=== PATIENT | male | born 1970 | race Caucasian/White ===

== ENCOUNTER 2019-11-18 08:14 | Emergency (ER) | payer MEDICAID ==
[~2019-11-18] VITALS: Ht 175.3 cm; Wt 77.3 kg
[2019-11-18] MEDS ORDERED: LORazepam 2 mg/ml vial IM ONE (09:45)
[2019-11-18 10:06] VITALS: BP 130/78
== END 2019-11-18 10:11 | disposition home or self-care (01) ==
LOC: ER 08:17
DX: F41.9 Anxiety disorder, unspecified (principal); E11.65 Type 2 diabetes mellitus with hyperglycemia; G47.00 Insomnia, unspecified; I10 Essential (primary) hypertension
CPT/HCPCS: 82948; 96372; 99283; J2060

== ENCOUNTER 2019-12-12 10:44 | Emergency (ER) | payer MEDICAID ==
[~2019-12-12] VITALS: Ht 175.3 cm; Wt 84.1 kg
[2019-12-12 10:50] VITALS: BP 126/90
[2019-12-12] MEDS ORDERED: CLON-527 PO (11:35)
== END 2019-12-12 11:50 | disposition home or self-care (01) ==
LOC: ER 10:45
DX: F41.9 Anxiety disorder, unspecified (principal); Z76.0 Encounter for issue of repeat prescription; E11.9 Type 2 diabetes mellitus without complications; I10 Essential (primary) hypertension; Z79.899 Other long term (current) drug therapy
CPT/HCPCS: 99281

== ENCOUNTER 2020-01-03 00:48 | Emergency (ER) | payer MEDICAID ==
[~2020-01-03] VITALS: Ht 175.3 cm; Wt 77.3 kg
[~2020-01-03 00:48] MED LIST: CLON-527 PO
[2020-01-03] MEDS ORDERED: LORazepam 1 MG tablet PO ONE (01:30)
[2020-01-03 01:50] LABS: BASOPHILS # (AUTO) 0.1 X10'3 (0-0.2); BASOPHILS % (AUTO) 0.9 % (0-1); EOSINOPHILS # (AUTO) 0.3 X10'3 (0-0.9); EOSINOPHILS % (AUTO) 2.8 % (0-6); HEMATOCRIT 44.6 % (42.0-52.0); HEMOGLOBIN 15.5 g/dl (14.0-17.9); LYMPHOCYTES # (AUTO) 2.5 X10'3 (1.1-4.8); LYMPHOCYTES % (AUTO) 26.5 % (21-51); MEAN CORPUSCULAR HEMOGLOBIN 32.3 PG (27.0-31.0); MEAN CORPUSCULAR HGB CONC 34.8 g/dL (33.0-36.5); MEAN CORPUSCULAR VOLUME 92.9 FL (78-98); MEAN PLATELET VOLUME 7.4 FL (7.4-10.4); MONOCYTES # (AUTO) 0.6 X10'3 (0-0.9); MONOCYTES % (AUTO) 6.4 % (2-12); NEUTROPHILS # (AUTO) 5.9 X10'3 (1.8-7.7); NEUTROPHILS % (AUTO) 63.4 % (42-75); PLATELET COUNT 335 X10'3 (140-440); WHITE BLOOD COUNT 9.3 X10'3 (4.5-11.0)
[2020-01-03 01:57] LABS: ALANINE AMINOTRANSFERASE 25 U/L (12-78); ALBUMIN 3.7 G/DL (3.4-5.0); ALBUMIN/GLOBULIN RATIO 1.3 (1.1-1.5); ALKALINE PHOSPHATASE 64 IU/L (46-116); ANION GAP 7 (8-16); ASPARTATE AMINO TRANSFERASE 15 U/L (10-37); BILIRUBIN,TOTAL 0.3 MG/DL (0.1-1.0); BLOOD UREA NITROGEN 10 MG/DL (7-18); BUN/CREATININE RATIO 8.6 (5.4-32.0); CHLORIDE 103 MMOL/L (99-107); CREATININE 1.16 MG/DL (0.60-1.10); GLUCOSE 107 MG/DL (70-104); SODIUM 141 MMOL/L (135-145); TOTAL CARBON DIOXIDE 31.5 MMOL/L (24-32); TOTAL PROTEIN 6.5 G/DL (6.4-8.2); eGFR 67 ML/MIN
[2020-01-03 01:58] LABS: ETHANOL < 0.010 GM/DL (0.0-0.010)
[2020-01-03 02:22] LABS: URINE AMPHETAMINE SCREEN NEGATIVE (Neg); URINE BARBITUATE SCREEN NEGATIVE (Neg); URINE BENZODIAZEPINES SCREEN NEGATIVE (Neg); URINE CANNABINOID SCREEN NEGATIVE (Neg); URINE COCAINE SCREEN NEGATIVE (Neg); URINE METHADONE SCREEN NEGATIVE (Neg); URINE OPIATE SCREEN NEGATIVE (Neg); URINE PHENCYCLIDINE SCREEN NEGATIVE (Neg)
--- NOTE | 2020-01-03 02:22 | NUR ---
Patient arrived to unit. He asked for water and crackers while lying on gurney.
--- NOTE | 2020-01-03 02:25 | NUR ---
provided crackers and water
[2020-01-03 05:45] VITALS: BP 105/63
--- NOTE | 2020-01-03 06:58 | NUR ---
pt is awake. resting in his room
[2020-01-03] MEDS ORDERED: nicotine 7mg patch - 24hr TD ONE (08:08)
[2020-01-04] MEDS ORDERED: nicotine 7mg patch - 24hr TD SCH (08:00)
== END 2020-01-03 10:01 | disposition home or self-care (01) ==
LOC: ER 00:49
DX: F41.9 Anxiety disorder, unspecified (principal); F32.9 Major depressive disorder, single episode, unspecified; I10 Essential (primary) hypertension; E11.9 Type 2 diabetes mellitus without complications; F17.200 Nicotine dependence, unspecified, uncomplicated; F12.90 Cannabis use, unspecified, uncomplicated; Z79.899 Other long term (current) drug therapy
CPT/HCPCS: 36415; 80053; 80305; 80320; 85025; 99285

== ENCOUNTER 2020-01-09 03:22 | Emergency (ER) | payer MEDICAID ==
[~2020-01-09] VITALS: Ht 175.3 cm; Wt 79.0 kg
[2020-01-09 03:26] VITALS: BP 115/77
== END 2020-01-09 04:20 | disposition home or self-care (01) ==
LOC: ER 03:22
DX: F41.9 Anxiety disorder, unspecified (principal); R10.84 Generalized abdominal pain; G89.29 Other chronic pain; I10 Essential (primary) hypertension; E11.9 Type 2 diabetes mellitus without complications; F12.90 Cannabis use, unspecified, uncomplicated; Z79.899 Other long term (current) drug therapy
CPT/HCPCS: 99281; 99283

== ENCOUNTER 2020-01-14 16:24 | Emergency (ER) | payer MEDICAID ==
[~2020-01-14] VITALS: Ht 175.3 cm; Wt 75.2 kg
--- NOTE | 2020-01-14 16:42 | NUR ---
[facility] BUT SAYS HE DOES NOT FEEL SAFE THERE HE FEELS LIKE PEOPLE ARE MESSING WITH HIM TRING TO MAKE HIM FEEL LIKE HE IS LOSING HIS MIND. SAYS HE HAS BEEN SEEING UFO'S ALSO SAID HE HEARD THE PEOPLE ON THE [facility] SAY HE IS ON TO US AND WE NEED TO CHANGE STUFF UP HE ALSO TALKED ABOUT A BAND THAT PLAYS [facility] LOOK AND HIS FACEBOOK PAGE AND STARTE TO PLAY A SONG TO MESS WITH HIM ABOUT SOMETHING HE WROTE ON FACEBOOK HE WANT TO GET ON A BUS AND MOVE TO [facility] SO PEOPLE STOP MESSING WITH HIM DENIES BEING SUICIDAL
--- NOTE | 2020-01-14 17:34 | NUR ---
LAYING IN BED WAITING TO BE EVALUATED BY DR CHOI S/S OF DISTRESS
--- NOTE | 2020-01-14 18:30 | NUR ---
Assumed patient care. Patient is dressed in street clothes. Patient attempted to hide his cell phone under his pillow. This web content writer removed the patients cell phone, he is being searched for other contriband. Patient is being changed into green scrubs. The plan is to get a urine sample and prepare for lab draw too. We are awaiting on a provider to see this patient.
--- NOTE | 2020-01-14 19:11 | NUR ---
Milan is sleeping quietly in a mid fowlers position. ED provider has not seen this patient as of yet. A urine sample has been sent to the lab for future analysis.
[2020-01-14] MEDS ORDERED: OLANZapine 2.5MG tablet PO STA (19:22)
[2020-01-14] MEDS ORDERED: diphenhydrAMINE 25mg capsule PO ONE (19:35)
[2020-01-14 19:50] LABS: URINE AMPHETAMINE SCREEN NEGATIVE (Neg); URINE BARBITUATE SCREEN NEGATIVE (Neg); URINE BENZODIAZEPINES SCREEN NEGATIVE (Neg); URINE CANNABINOID SCREEN NEGATIVE (Neg); URINE COCAINE SCREEN NEGATIVE (Neg); URINE METHADONE SCREEN NEGATIVE (Neg); URINE OPIATE SCREEN NEGATIVE (Neg); URINE PHENCYCLIDINE SCREEN NEGATIVE (Neg)
[2020-01-14 20:07] LABS: BASOPHILS # (AUTO) 0.1 X10'3 (0-0.2); BASOPHILS % (AUTO) 0.7 % (0-1); EOSINOPHILS # (AUTO) 0.1 X10'3 (0-0.9); EOSINOPHILS % (AUTO) 1.2 % (0-6); HEMATOCRIT 41.9 % (42.0-52.0); HEMOGLOBIN 14.8 g/dl (14.0-17.9); LYMPHOCYTES % (AUTO) 22.8 % (21-51); MEAN CORPUSCULAR HEMOGLOBIN 32.6 PG (27.0-31.0); MEAN CORPUSCULAR HGB CONC 35.5 g/dL (33.0-36.5); MEAN CORPUSCULAR VOLUME 92.1 FL (78-98); MEAN PLATELET VOLUME 7.5 FL (7.4-10.4); MONOCYTES # (AUTO) 0.5 X10'3 (0-0.9); NEUTROPHILS % (AUTO) 69.3 % (42-75); PLATELET COUNT 292 X10'3 (140-440); RED BLOOD COUNT 4.55 X10'6 (4.70-6.10); RED CELL DISTRIBUTION WIDTH 12.7 % (11.5-14.5); WHITE BLOOD COUNT 8.7 X10'3 (4.5-11.0)
[2020-01-14] MEDS ORDERED: ATEN-169 PO (20:07)
[2020-01-14] MEDS ORDERED: CLON-527 PO (20:09)
[2020-01-14] MEDS ORDERED: HYDR-3686 PO (20:11)
[2020-01-14 20:14] LABS: ALANINE AMINOTRANSFERASE 18 U/L (12-78); ALBUMIN 3.7 G/DL (3.4-5.0); ALBUMIN/GLOBULIN RATIO 1.5 (1.1-1.5); ALKALINE PHOSPHATASE 67 IU/L (46-116); ANION GAP 7 (8-16); ASPARTATE AMINO TRANSFERASE 12 U/L (10-37); BILIRUBIN,TOTAL 0.5 MG/DL (0.1-1.0); BLOOD UREA NITROGEN 6 MG/DL (7-18); BUN/CREATININE RATIO 5.6 (5.4-32.0); CHLORIDE 99 MMOL/L (99-107); CREATININE 1.08 MG/DL (0.60-1.10); GLUCOSE 279 MG/DL (70-104); POTASSIUM 3.7 MMOL/L (3.5-5.1); SODIUM 136 MMOL/L (135-145); TOTAL CARBON DIOXIDE 30.1 MMOL/L (24-32); TOTAL PROTEIN 6.2 G/DL (6.4-8.2); eGFR 73 ML/MIN
[2020-01-14 20:21] LABS: ETHANOL < 0.010 GM/DL (0.0-0.010)
[2020-01-14] MEDS ORDERED: NICOTINE POLACRILEX 2 MG LOZENGE BC PRN (20:25)
[2020-01-14] MEDS ORDERED: traZODone 50mg tablet PO SCH (21:00)
--- NOTE | 2020-01-14 22:01 | NUR ---
BREAKING PRIMARY RN; WILL CONT TO MONITOR.
--- NOTE | 2020-01-14 23:44 | NUR ---
Patient is sleeping quietly on his right side. Line of sight from the nursing station.
--- NOTE | 2020-01-15 00:59 | NUR ---
BREAKING PRIMARY RN; WILL CONT TO MONITOR.
--- NOTE | 2020-01-15 01:59 | NUR ---
Patient sleeping on his left side, in view from the nursing station.
--- NOTE | 2020-01-15 03:51 | NUR ---
Hetal waggoner in [place] - 01/15/20 at 0353 by ILIR PATIENT'S WAS SENT TO [facility].
--- NOTE | 2020-01-15 03:54 | NUR ---
PATIENT'S PACKET WAS SENT TO [facility].
[2020-01-15 05:04] VITALS: BP_DIAS 81
--- NOTE | 2020-01-15 06:04 | NUR ---
Patient is sleeping quietly on his left side. No distress.
[2020-01-15] MEDS ORDERED: hydrOXYzine 25 MG tablet PO SCH (08:00)
[2020-01-15] MEDS ORDERED: atenolol 50mg tablet PO SCH (08:00)
[2020-01-15 09:50] VITALS: BP_SYST 120
--- NOTE | 2020-01-15 11:50 | NUR ---
PT BEING EVALUATED BY SCM.
== END 2020-01-15 14:19 | disposition home or self-care (01) ==
LOC: ER 16:24
DX: R44.1 Visual hallucinations (principal); R45.851 Suicidal ideations; I10 Essential (primary) hypertension; E11.9 Type 2 diabetes mellitus without complications; F41.9 Anxiety disorder, unspecified; F12.90 Cannabis use, unspecified, uncomplicated; Z79.899 Other long term (current) drug therapy
CPT/HCPCS: 36415; 80053; 80305; 80320; 85025; 99284; Q0163; Q0177

== ENCOUNTER 2021-01-30 00:10 | Emergency (ER) | payer MEDICAID ==
[~2021-01-30] VITALS: Ht 175.3 cm; Wt 86.4 kg
[~2021-01-30 00:10] MED LIST changes: +ATEN-169 PO; +HYDR-3686 PO
[2021-01-30 00:20] VITALS: BP 133/84
[2021-01-30] MEDS ORDERED: ibuprofen tablet 400 MG TABLET PO ONE (02:05)
[2021-01-30] MEDS ORDERED: IBUP-1984 PO (02:41)
== END 2021-01-30 03:48 | disposition home or self-care (01) ==
LOC: ER 00:11
DX: M79.18 Myalgia, other site (principal); M25.511 Pain in right shoulder; I10 Essential (primary) hypertension; E11.9 Type 2 diabetes mellitus without complications; F41.9 Anxiety disorder, unspecified; F17.200 Nicotine dependence, unspecified, uncomplicated; F12.90 Cannabis use, unspecified, uncomplicated; Z79.899 Other long term (current) drug therapy
CPT/HCPCS: 73030; 99283